=== PATIENT | female | born 2000 | race American Indian/Alaskan Native ===

== ENCOUNTER 2019-06-03 18:20 | Emergency (ER) | payer SELFPAY | END 2019-06-03 19:20 | disposition left against medical advice (07) | LOC: ED 18:20 | DX: O20.9 Hemorrhage in early pregnancy, unspecified (principal); Z3A.01 Less than 8 weeks gestation of pregnancy; Z53.21 Procedure and treatment not carried out due to patient leaving prior to being seen by health care provider ==

== ENCOUNTER 2020-10-25 18:39 | Outpatient (CLI) | payer OTHER ==
[2020-10-25 19:24] VITALS: BP 113/67
[2020-10-25 21:07] LABS: Bilirubin,Urine NEG (Negative); Blood,Urine NEG (Negative); Color,Urine Straw (Yellow); Hyaline Casts,Urine 1 /LPF; Mucus,Urine FEW /HPF; Protein,Urine <15 mg/dL mg/dL (Negative); Urobilinogen,Urine < 2.0 mg/dL (<2.0)
[2020-10-25] MEDS ORDERED: LACTATED RINGERS 1,000 ML IV ONE (21:16)
--- NOTE | 2020-10-26 07:56 | Ultrasound Report ---
US OB LIMITED US OB BIOPHYSICAL INDICATION / CLINICAL INFORMATION: labor. COMPARISON: None available. FINDINGS: breathing movement = 2 Gross body movement = 2 tone = 2 Qualitative amniotic fluid volume = 2 Total biophysical score = 8/8 Amniotic fluid index is 11.7 cm. Presentation is Cephalic. heart rate is 135 beats per minute. IMPRESSION: biophysical profile = 02/18 Amniotic fluid index is normal. Signer Name: Cali Deshpande MD Signed: 10/25/2020 11:44 PM Workstation Name: [id number]
== END 2020-10-26 00:19 | disposition home or self-care (01) ==
LOC: TRG 18:39 → APU 18:39 → TRG 10-26 00:19
PROVIDERS: ATTEND Obstetrics & Gynecology
DX: O62.9 Abnormality of forces of labor, unspecified (principal); Z87.891 Personal history of nicotine dependence; Z3A.33 33 weeks gestation of pregnancy
CPT/HCPCS: 59025; 76815; 76819; 81001; 96360

== ENCOUNTER 2021-08-07 22:37 | Outpatient (CLI) | payer OTHER ==
[2021-08-08 01:21] VITALS: BP 106/59
--- NOTE | 2021-08-08 01:28 | Ultrasound Report ---
Of the ultrasound INDICATION: Evaluate FINDINGS: Single live intrauterine in cephalic position. Placenta is anterior and grade one . heart rate 1 48 bpm. Cervix length with 3.3 cm. BPD measures 18 weeks 2 days. Head circumfere nce 14.9 cm measuring 18 weeks 0 days. Abdominal circumference 18 weeks 2 days and femoral length 18 weeks 2 days. weight 230 g. Ultrasound age 18 weeks 2 days. IMPRESSION: Single live intrauterine measuring 18 weeks 2 days by ultrasound. Signer Name: Prudencio Echevarria MD Signed: 08/08/2021 1:24 AM Workstation Name: [id number]
== END 2021-08-08 02:18 ==
LOC: TRG 22:37 → APU 22:38 → TRG 08-08 02:18
PROVIDERS: ATTEND Obstetrics & Gynecology Gynecology
DX: O26.892 Other specified pregnancy related conditions, second trimester (principal); R10.9 Unspecified abdominal pain; R25.2 Cramp and spasm; Z3A.20 20 weeks gestation of pregnancy
CPT/HCPCS: 76816

== ENCOUNTER 2022-03-18 16:07 | Emergency (ER) | payer OTHER ==
[2022-03-18 16:34] VITALS: BP 166/84
--- NOTE | 2022-03-19 09:32 | Electrocardiograph Report ---
[facility] Test Date: 2022-03-18 Test Time: 16:46:57 Pat Name: CYNTHIA JONES Department: Room: Gender: F [employer]: DENIZ : 2000 Requested By: KAREL MARISCAL Order Number: [id number] Reading MD: Julian Levy Measurements Intervals [place] Rate: 93 P: ND: QRS: 66 QRSD: 75 T: 36 QT: 370 QTc: 461 Interpretive Statements Atrial fibrillation No previous ECG available for comparison Electronically Signed On 03-19-2022 9:31:34 EDT by Julian Levy
== END 2022-03-18 20:00 | disposition left against medical advice (07) ==
LOC: ED 16:07
DX: F41.0 Panic disorder [episodic paroxysmal anxiety] (principal); Z53.21 Procedure and treatment not carried out due to patient leaving prior to being seen by health care provider
CPT/HCPCS: 93005